=== PATIENT | female | born 1955 | race Caucasian/White ===

== ENCOUNTER → 2017-10-09 | Outpatient (CLI) | payer BC ==
[~2017-10-09] VITALS: Ht 160 cm; Wt 92.1 kg
[~2017-10-09] MED LIST: COMBIGAN O20 DROP/5 RIGHT EYE
== END | disposition home or self-care (01) ==
LOC: AMB 08:30
DX: Z12.11 Encounter for screening for malignant neoplasm of colon (principal); D12.0 Benign neoplasm of cecum; D12.5 Benign neoplasm of sigmoid colon
CPT/HCPCS: 88305